=== PATIENT | male | born 1960 | race Hispanic/Latino ===

== ENCOUNTER 2024-07-13 17:53 | Emergency (ER) | payer BC ==
[~2024-07-13] VITALS: Ht 175.3 cm; Wt 74.8 kg
[2024-07-13 18:00] VITALS: BP 149/82; PULSE 89; RESP 18; TEMP 97.8; O2SAT 99
--- NOTE | 2024-07-13 18:14 | NUR ---
PT JUST PLACED IN MY ED BED 11
[2024-07-13] MEDS ORDERED: AMOX1TAB16 PO (18:38)
--- NOTE | 2024-07-13 18:39 | ERN ---
General Chief Complaint: Wound Check Stated Complaint: WOUND Time Seen by MD: 17:54 History of Present Illness Initial Comments Patient comes in with complaint of chronic wound to the right foot. On the soles of this foot distally by the 2nd 3rd and 4th toe patient has a round callus. He states he had a chronic callus there. He started digging the center of it out with a knife about a month ago. He then states that it stayed persistently open. No fever no foul drainage. After it opened up he has been using aloe vera and Neosporin. He states he went to to [facility] and he was referred to the ED. He did go to the ED and they did x-rays and lab work and stated it did not see any infection and referred him to Podiatry. He did also have a round of antibiotics during this time in the last month although he is not sure why as he was told that it did not look infected. As stated he had x-rays twice as well as labs. 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 He had called the insurance company and they stated that everything was good and he has coverage she will the end of the month. He saw Dr. Nolasco for Podiatry for when he went to the office they told him that his insurance was not valid. As such she could not get seen. They told him that they would see him this Tuesday once the insurance issue is sort it out but he did not want to wait until then given the holiday weekend and came back to the ED. He denies any fever. Denies any drainage. He has been wearing sandals that have the medial part of his MTP joint cut out. However when he came to the ED and took his socks off he had bleeding in that area. The bleeding was not from the wound but from a small tear on the bunion of his right foot. He feels like maybe his toes are also bit swollen. Denies any fever Allergies: Coded Allergies: No Known Drug Allergies (Unverified Allergy, Unknown, 07/13/24) Past Medical History Past Medical History: Diabetes-Type II, High Cholesterol, Hypertension Past Surgical History: Other Surgical History Other: LEFT KNEE SX ROS Dictation Ten systems reviewed and negative except as noted in HPI Physical Exam Physical Exam Dictation GEN: non toxic, NAD HEENT: atrumatic, PERRL, EOMI, conjunctivae normal NECK: Soft supple nontender Heart RRR, no murmurs Chest: No deformity Lungs: Lungs clear to auscultation Ab: Soft nondistended nontender Back: No midline step-offs. No gross deformity. No CVA tenderness : m/s: Moving all four extremities. No gross deformity Neuro: CN 2-12 intact. Moving all four extremities. Looking at the right foot patient has notable bunions bilaterally. On the one in the right patient has a small abrasion with focal bleeding. The chronic ulcer itself on the bottom of the foot is annular about the size of a quarter with the central portion being a big divot down to the subcu tissue. I do not appreciate any surrounding erythema. No foul drainage. On the dorsal aspect as stated patient has a small abrasion that is bleeding on the bunion by the big toe. However more lateral to this patient does seem to perhaps have a bit of redness. This maybe blood although it maybe started this fall a bit. Possibly that there is a cellulitis setting in I think more from the wound from the medial aspect by the bunion rather than actually the chronic open wound on the bottom of his foot. Psych: Cooperative MDM Patient has small abrasion. Possible the area maybe started to get infected. Continue wound care. Topical antibiotic ointment. Given it is on the foot we will put patient on Augmentin. Regarding the chronic wound on his foot patient has appointment with Podiatry this Tuesday. He had actually been seen by Podiatry today but visit was not able to be completed secondary to the some sort of insurance issues. He has a repeat appointment already scheduled for next week. Patient denies any fever. Follow up with Podiatry as scheduled. Discharged home. ED Course Vital Signs Date Time Temp Pulse Resp B/P (MAP) Pulse Ox O2 Delivery O2 Flow Rate FiO2 07/13/24 18:00 97.9 89 18 149/82 99 Room Air* 0 21 07/13/24 17:55 97.9 89 18 148/82 99 Room Air 0 DX & DISP Disposition: Discharge Departure Impression: Primary Impression: Chronic wound of extremity Additional Impressions: Abrasion, Cellulitis of foot Condition: Stable Scripts Amoxicillin/Potassium Clav (Amox Tr-K Clv 875-125 mg Tab) 875 Mg-125 Mg Tablet 1 TAB PO BID for 10 Days, #20 TAB 0 Refills Prov: DYLAN FAITH MD 07/13/24 Additional Instructions: Follow up with Dr. Nolasco your tire builder operator this Wed as scheduled Take Augmentin your antibiotic as prescribed for possible infection Antibiotic ointment to the abrasion by your big toe. Keep wound clean Referrals: NONE (PCP) DYLAN FAITH MD Jul 13, 2024 18:39
--- NOTE | 2024-07-13 19:01 | NUR ---
NON ADHERENT GAUZE AND COBAN WRAPPED AROUND R FOOT DIABETIC ULCER
== END 2024-07-13 19:01 | disposition home or self-care (01) ==
LOC: EDH 17:53
DX: S90.812A Abrasion, left foot, initial encounter (principal); L03.116 Cellulitis of left lower limb; E11.9 Type 2 diabetes mellitus without complications; E78.00 Pure hypercholesterolemia, unspecified; I10 Essential (primary) hypertension; X58.XXXA Exposure to other specified factors, initial encounter; Y93.89 Activity, other specified; Y92.89 Other specified places as the place of occurrence of the external cause; Y99.8 Other external cause status
CPT/HCPCS: 99283